=== PATIENT | male | born 1970 | race Caucasian/White ===

== ENCOUNTER 2016-06-26 11:44 | Emergency (ER) | payer OTHER ==
[~2016-06-26 11:44] MED LIST: MEDROLPAK4 PO; METHOC500B PO; PERCOCET1 TA4 PO
== END 2016-06-26 14:03 | disposition home or self-care (01) ==
LOC: ER 11:44
DX: M54.5 Low back pain (principal); G89.29 Other chronic pain; F17.200 Nicotine dependence, unspecified, uncomplicated; Z88.1 Allergy status to other antibiotic agents; Z88.6 Allergy status to analgesic agent; Z79.899 Other long term (current) drug therapy
CPT/HCPCS: 72100; 96372; 99284; J1170; J2930